=== PATIENT | male | born 1995 | race Asian ===

== ENCOUNTER 2020-03-05 09:16 | Emergency (ER) | payer BC ==
[~2020-03-05] VITALS: Ht 175.3 cm; Wt 76.8 kg
[2020-03-05 09:22] VITALS: BP 135/92
--- NOTE | 2020-03-05 09:30 | NUR ---
24 y/o male from home c/o dog bite to lt lower leg x 1 hr ago. Pt states he does not know who the master printer is of the dog. Pt bit by small Kristy. 2/10 burning pain. Noticable abrasion to area. VSS
--- NOTE | 2020-03-05 09:38 | NUR ---
Dr Ferrer at bedside examining pt
[2020-03-05] MEDS ORDERED: BACITRACIN OINT 500 UNITS/GM PKT TP ONE (09:40)
[2020-03-05 09:59] VITALS: BP 135/92
--- NOTE | 2020-03-05 10:01 | NUR ---
Patient discharged with v/s stable. Written and verbal after care instructions given and explained. Patient alert, oriented and verbalized understanding of instructions. Ambulatory with steady gait. All questions addressed prior to discharge. ID band removed. Patient advised to follow up with PMD. Rx of Augmentin 875mg given. Patient educated on indication of medication including possible reaction and side effects. Opportunity to ask questions provided and answered.
== END 2020-03-05 10:01 | disposition home or self-care (01) ==
LOC: MED 09:16
DX: S81.812A Laceration without foreign body, left lower leg, initial encounter (principal); W54.0XXA Bitten by dog, initial encounter; Y93.89 Activity, other specified; Y92.89 Other specified places as the place of occurrence of the external cause; Y99.8 Other external cause status
CPT/HCPCS: 90471; 90715; 99283